=== PATIENT | female | born 1965 | race Caucasian/White ===

== ENCOUNTER 2016-06-24 08:00 | Observation (INO) | payer OTHER ==
[~2016-06-24] VITALS: Ht 154.9 cm; Wt 57.9 kg
[2016-06-24] MEDS ORDERED: METHYLPRED SOD SUCC 125 MG/2 ML VIAL ONE (10:07)
[2016-06-24 13:00] VITALS: BP_SYST 106; BP_SYST 114; RESP 20; TEMP 97.7; Ht 154.9 cm; Wt 57.9 kg
[2016-06-24] MEDS ORDERED: MORPHINE 2 MG/ML SYR IV PRN (15:05)
[2016-06-24] MEDS ORDERED: SODIUM CHLORIDE 0.9% FLUSH BAG 500 ML IV PRN (15:05)
[2016-06-24] MEDS ORDERED: SALINE FLUSH 10 ML FLUSH PRN (15:05)
[2016-06-24] MEDS ORDERED: ASPIRIN 81 MG CHEW TAB PO ONE (15:05)
[2016-06-24] MEDS ORDERED: NITROGLYCERIN 50 MG/250 ML IV PRN (15:05)
[2016-06-24] MEDS ORDERED: NITROGLYCERIN SL 0.4 MG TAB SL PRN (15:05)
[2016-06-24 15:20] VITALS: BP_SYST 108; RESP 20; TEMP 98.6
[2016-06-24] MEDS ORDERED: TEMAZEPAM 15 MG CAP PO PRN (15:25)
[2016-06-24] MEDS ORDERED: TRAMADOL 50 MG TAB PO PRN (15:25)
[2016-06-24] MEDS ORDERED: ACETAMINOPHEN 325 MG TAB PO PRN (15:25)
[2016-06-24] MEDS ORDERED: LORAZEPAM 0.5 MG TAB PO PRN (15:25)
[2016-06-24] MEDS ORDERED: ONDANSETRON 4 MG VIAL IV PRN (15:25)
[2016-06-24] MEDS ORDERED: DOCUSATE SOD 100 MG CAP PO PRN (15:25)
[2016-06-24] MEDS ORDERED: Hydrocodone/APAP 10/325 MG TAB PO PRN ×2 (18:45→19:45)
[2016-06-24] MEDS ORDERED: MISSING DOSE XX ONE (18:50)
[2016-06-24 18:53] VITALS: RESP 20
[2016-06-24] MEDS ORDERED: NITROGLYCERIN SL 0.4 MG TAB SL SCH (19:45)
[2016-06-24] MEDS ORDERED: NEB-ALBUTEROL 2.5 MG/3 ML INH PRN (19:45)
[2016-06-24] MEDS ORDERED: ONDANSETRON 4 MG TAB PO PRN (19:45)
[2016-06-24] MEDS ORDERED: EPINEPHrine 1 MG/ML AMP IM SCH (19:45)
[2016-06-24] MEDS ORDERED: CYCLOBENZAPRINE 10 MG TAB PO PRN (19:45)
[2016-06-24 19:53] VITALS: BP_SYST 107; RESP 16; TEMP 98.2
[2016-06-24] MEDS: METOPROLOL XL 25 MG TAB PO SCH (21:02)
[2016-06-24] MEDS: GABAPENTIN 400 MG CAP PO SCH (21:02)
[2016-06-24] MEDS: ISOSORBIDE MONO 30 MG TAB PO SCH (21:02)
[2016-06-24] MEDS: TOPIRAMATE 100 MG TAB PO SCH (21:02)
[2016-06-24] MEDS: SALINE FLUSH 10 ML FLUSH SCH (21:02)
[2016-06-24] MEDS: CITALOPRAM 20 MG TAB PO SCH ×2 (21:02→21:07)
[2016-06-24] MEDS: MORPHINE ER 15 MG TAB PO SCH (21:03)
[2016-06-24 22:49] VITALS: BP_SYST 92; RESP 18; TEMP 97.3
[2016-06-25 03:00] VITALS: BP_SYST 95; RESP 18; TEMP 97.7
[2016-06-25 07:37] VITALS: BP_SYST 104; RESP 16; TEMP 97.4
[2016-06-25] MEDS ORDERED: ASPIRIN EC 81 MG TAB PO SCH ×2 (08:00→09:00)
[2016-06-25] MEDS: CITALOPRAM 20 MG TAB PO SCH (09:00)
[2016-06-25] MEDS: METOPROLOL XL 25 MG TAB PO SCH (09:34)
[2016-06-25] MEDS: TOPIRAMATE 100 MG TAB PO SCH (09:35)
[2016-06-25] MEDS: SALINE FLUSH 10 ML FLUSH SCH (09:35)
[2016-06-25] MEDS: ISOSORBIDE MONO 30 MG TAB PO SCH (09:35)
[2016-06-25] MEDS: GABAPENTIN 400 MG CAP PO SCH (09:36)
[2016-06-25] MEDS: MORPHINE ER 15 MG TAB PO SCH (09:37)
[2016-06-25 11:31] VITALS: BP_SYST 100; RESP 16; TEMP 97.4
== END 2016-06-25 10:15 | disposition home or self-care (01) ==
LOC: ENRESERVTM → ENRESERVDT → ER 08:00 → EMR 11:38 → ENPENDDIS 11:38 → PCU2 12:59
PROVIDERS: ADMIT Internal Medicine Cardiovascular Disease; ATTEND Internal Medicine Cardiovascular Disease
DX: R07.89 Other chest pain (principal); E78.5 Hyperlipidemia, unspecified; F17.210 Nicotine dependence, cigarettes, uncomplicated; M19.90 Unspecified osteoarthritis, unspecified site; K21.9 Gastro-esophageal reflux disease without esophagitis; Z79.82 Long term (current) use of aspirin
CPT/HCPCS: 36415; 71010; 80053; 80061; 82550; 82553; 83735; 84484; 85025; 85610; 85730; 93005; 94799; 96374